=== PATIENT | male | born 1990 | race Caucasian/White ===

== ENCOUNTER 2023-08-03 18:31 | Observation (INO) ==
[2023-08-03 18:48] VITALS: BMI 42.7
--- NOTE | 2023-08-03 19:08 | DR.ABDMALE ---
HPI <Scott Rivera - Last Filed: 08/04/23 08:48> Time seen Time Seen by Provider: 08/03/23 19:07 PCP Primary Care Physician: JANAE CASTILLO Complaint Chief Complaint Doctors Comments: 32-year-old male presents for evaluation.. Patient diagnosed with gallstones in the past. Has been having a flareup over the past week. Pain of the right upper quadrant, radiates into the right back. Has been fairly persistent. Worse with eating and movement. Nothing makes it better.. Patient was seen in another facility 2 days ago, had lab work and an ultrasound. Was told that he had gallstones with inflammation of the gallbladder. Was referred to surgery, they cannot schedule him for 2 weeks. Patient having persistent pain, very severe. Nothing makes it better. Was prescribed hydrocodone. Denies fevers or chills, has been having nausea. Only vomited once last week. Denies bowel or bladder issues. Chief Complaint:: PT TO ED C/O R SIDED FLANK PAIN SINCE TUESDAY. PT WAS SEEN IN [place] ED TUESDAY NIGHT AND STATES HE WAS TOLD HE HAD GALLSTONES AND INFLAMMED GALLBLADDER. PT WAS REFERRED TO SURGEON IN [place] BUT STATES THEY CANNOT GET HIM ON THE SCHEDULE FOR TWO MORE WEEKS. PT IS UNABLE TO GET RELIEF AND RATES PAIN 10/10. COVID-19 Coronavirus risk:travel/contact w/high risk person: No Has patient experienced Coronavirus symptoms: No Reviewed Nurses Notes Review: Yes Source History provided by:: patient Mode of arrival Mode of Arrival: Ambulatory Timing Onset of Chief Complaint: 07/31/23 PMH <Scott Morenovinod - Last Filed: 08/04/23 08:48> PMH Past Medical History: Yes Past Medical History: Hypertension Past Surgical History: Yes Surgical History: Ortho Surgery Family History History of Family Medical Conditions: No Social History Does patient currently use any type of tobacco product: No Alcohol Use: Occasionally Do you use any recreational Drugs:: No Travel Risk Coronavirus risk:travel/contact w/high risk person: No Has patient experienced Coronavirus symptoms: No Infectious screening Have you traveled outside the country in the last 6 months?: No Isolation: Standard ROS <Scott Morenovinod - Last Filed: 08/04/23 08:48> Review of Systems Constitutional: No Symptoms Reported Eyes: No Symptoms Reported ENTM: No Symptoms Reported Respiratoy: No Symptoms Reported Cardiovascular: No Symptoms Reported Gastrointestinal/Abdominal: See HPI Genitourinary: No Symptoms Reported Neurological: No Symptoms Reported Musculoskeletal: No Symptoms Reported Integumentary: No Symptoms Reported Hematologic/Lymphatic: No Symptoms Reported All Other Systems: Reviewed and Negative PE <Scott Rivera - Last Filed: 08/04/23 08:48> Vital Signs Vital Signs: Temp Pulse Resp BP Pulse Ox 08/03/23 20:07 18 08/03/23 20:06 18 08/03/23 19:37 16 08/03/23 19:36 16 08/03/23 18:32 97.7 F 77 16 147/84 98 General General Appearance: Alert and In No Apparent Distress Eyes Eye exam: PERRL and EOMI ENT ENT Exam: Normal Oropharynx and Mucous Membranes Moist Neck Neck Exam: Normal Inspection Respiratory Respiratory Exam: Normal Lung Sounds Bilat; negative Accessory Muscle Use or R espiratory Distress Cardiovascular Cardiovascular Exam: Regular Rate, Normal Rhythm and Normal Heart Sounds Abdominal Exam Abdominal Exam: Normal Bowel Sounds, Soft and Tenderness (RUQ, + Renner's) Back Back Exam: (R) CVA Tenderness Extremeties Extremities Exam: Normal Inspection Neurologic Neurological Exam: Alert, Oriented X3 and CN II-XII Intact; negative Motor Sensory Deficit Skin Skin Exam: Warm and Dry <Claudette BlasMabelBoubacar - Last Filed: 08/03/23 22:11> Vital Signs Vital Signs: Temp Pulse Resp BP Pulse Ox 08/03/23 20:07 18 08/03/23 20:06 18 08/03/23 19:37 16 08/03/23 19:36 16 08/03/23 18:32 97.7 F 77 16 147/84 98 COURSE <Scott Rivera - Last Filed: 08/04/23 08:48> Treatment Treatment: Patient with right upper quadrant abdominal pain over the past several days. Has a history of gallstones in the past. Told 2 days ago at [facility] ER that it was inflamed. Workup initiated. Patient given IV fluids, IV Zofran/Toradol/Dilaudid. Patient will be signed over to my relief physician, Dr Hamlin. <Claudette Lynn - Last Filed: 08/03/23 22:11> Treatment Treatment: Patient with right upper quadrant abdominal pain over the past several days. Has a history of gallstones in the past. Told 2 days ago at another ER that it was inflamed. Workup initiated. Patient given IV fluids, IV Zofran/Toradol/Dilaudid. Patient will be signed over to my relief physician, Dr aHmlin. 21:[address] Jones. Dr Jones will admit patient to his service and will consult Dr Palma. Patient states that he is not having pain at this time. ROR <Scott Rivera - Last Filed: 08/04/23 08:48> Labs Reviewed 08/04/23 05:13 08/04/23 05:13 Laboratory: WBC 9.2 X10^3/uL (3.6-10.0) 08/03/23 19:22 RBC 4.86 X10^6/uL (4.7-6.0) 08/03/23 19:22 Hgb 14.4 g/dL (13.5-18.0) 08/03/23 19:22 Hct 42.2 % (42.0-54.0) 08/03/23 19:22 MCV 86.8 fL (80.0-100.0) 08/03/23 19:22 MCH 29.6 pg (27.0-34.0) 08/03/23 19:22 MCHC 34.1 g/dL (33.0-35.0) 08/03/23 19:22 RDW 13.3 % (11.6-16.5) 08/03/23 19:22 Plt Count 187 X10^3/uL (150.0-450.0) 08/03/23 19:22 MPV 8.3 fL (7.4-11.0) 08/03/23 19:22 Neut % (Auto) 69.9 % (42.0-75.0) 08/03/23 19:22 Lymph % (Auto) 14.9 % (21.0-51.0) L 08/03/23 19:22 Band[place] % (Auto) 9.9 % (0.0-13.0) 08/03/23 19:22 Eos % (Auto) 4.3 % (0.9-2.9) H 08/03/23 19:22 Baso % (Auto) 1.0 % (0.2-1.0) 08/03/23 19:22 Neut # (Auto) 6.4 x10^3/uL (2.2-4.8) H 08/03/23 19:22 Lymph # (Auto) 1.4 X10^3/uL (1.3-2.9) 08/03/23 19:22 Bandera # (Auto) 0.9 x10^3/uL (0.3-0.8) H 08/03/23 19:22 Eos # (Auto) 0.4 x10^3/uL (0.0-0.2) H 08/03/23 19:22 Baso # (Auto) 0.1 X10^3/uL (0.0-0.1) 08/03/23 19:22 Absolute Nucleated RBC 0.0 /100WBC 08/03/23 19:22 Sodium 145 mmol/L (136-145) 08/03/23 19:22 Corrected Sodium TNP 08/03/23 19:22 Potassium 3.8 mmol/L (3.5-5.1) 08/03/23 19:22 Chloride 106 mmol/L (98-107) 08/03/23 19:22 Carbon Dioxide 29.9 mmol/L (21-32) 08/03/23 19:22 BUN 10 mg/dL (7-18) 08/03/23 19:22 Creatinine 1.18 mg/dL (0.70-1.30) 08/03/23 19:22 Est GFR (MDRD) Af Amer > 60 (>60) 08/03/23 19:22 Est GFR (MDRD) Non-Af > 60 (>60) 08/03/23 19:22 Glucose 89 mg/dL (65-99) 08/03/23 19:22 Calcium 8.8 mg/dL (8.5-10.1) 08/03/23 19:22 Corrected Calcium TNP 08/03/23 19:22 Total Bilirubin 0.70 mg/dL (0.2-1.0) 08/03/23 19:22 AST 19 Units/L (15-37) 08/03/23 19:22 ALT 42 Units/L (12-78) 08/03/23 19:22 Alkaline Phosphatase 80 Units/L (46-116) 08/03/23 19:22 Total Protein 7.3 g/dL (6.4-8.2) 08/03/23 19:22 Albumin 3.6 g/dL (3.4-5.0) 08/03/23 19:22 Globulin 3.7 g/dL (2.5-4.5) 08/03/23 19:22 Albumin/Globulin Ratio 1.0 Ratio (1.1-2.1) L 08/03/23 19:22 Lipase 35 Units/L (16-77) 08/03/23 19:22 Specimen Type Clean catch urine 08/03/23 19:40 Urine Color Yellow (YELLOW) 08/03/23 19:40 Urine Appearance Clear (CLEAR) 08/03/23 19:40 Urine pH 6.0 (5.0 - 8.0) 08/03/23 19:40 Ur Specific [place] 1.020 (1.000-1.030) 08/03/23 19:40 Urine Protein 1+ (NEGATIVE) 08/03/23 19:40 Urine Glucose (UA) Negative (NEGATIVE) 08/03/23 19:40 Urine Ketones Negative (NEGATIVE) 08/03/23 19:40 Urine Blood 1+ (NEGATIVE) 08/03/23 19:40 Urine Nitrite Negative (NEGATIVE) 08/03/23 19:40 Urine Bilirubin Negative (NEGATIVE) 08/03/23 19:40 Urine Urobilinogen Normal (NORMAL) 08/03/23 19:40 Ur Leukocyte Esterase Negative (NEGATIVE) 08/03/23 19:40 Urine RBC 0-2 /HPF (0-3) 08/03/23 19:40 Urine WBC 0-2 /HPF (0-5) 08/03/23 19:40 Ur Squamous Epith Cells Few /HPF (NEGATIVE) 08/03/23 19:40 Urine Bacteria Trace /HPF (NEGATIVE) 08/03/23 19:40 Ur Culture Indicated? No/not indicated 08/03/23 19:40 <Claudette Lynn - Last Filed: 08/03/23 22:11> Labs Reviewed Laboratory Results Reviewed?: Yes Laboratory: WBC 9.2 X10^3/uL (3.6-10.0) 08/03/23 19:22 RBC 4.86 X10^6/uL (4.7-6.0) 08/03/23 19:22 Hgb 14.4 g/dL (13.5-18.0) 08/03/23 19:22 Hct 42.2 % (42.0-54.0) 08/03/23 19:22 MCV 86.8 fL (80.0-100.0) 08/03/23 19:22 MCH 29.6 pg (27.0-34.0) 08/03/23 19:22 MCHC 34.1 g/dL (33.0-35.0) 08/03/23 19:22 RDW 13.3 % (11.6-16.5) 08/03/23 19:22 Plt Count 187 X10^3/uL (150.0-450.0) 08/03/23 19:22 MPV 8.3 fL (7.4-11.0) 08/03/23 19:22 Neut % (Auto) 69.9 % (42.0-75.0) 08/03/23 19:22 Lymph % (Auto) 14.9 % (21.0-51.0) L 08/03/23 19:22 Bandera % (Auto) 9.9 % (0.0-13.0) 08/03/23 19:22 Eos % (Auto) 4.3 % (0.9-2.9) H 08/03/23 19:22 Baso % (Auto) 1.0 % (0.2-1.0) 08/03/23 19:22 Neut # (Auto) 6.4 x10^3/uL (2.2-4.8) H 08/03/23 19:22 Lymph # (Auto) 1.4 X10^3/uL (1.3-2.9) 08/03/23 19:22 Bandera # (Auto) 0.9 x10^3/uL (0.3-0.8) H 08/03/23 19:22 Eos # (Auto) 0.4 x10^3/uL (0.0-0.2) H 08/03/23 19:22 Baso # (Auto) 0.1 X10^3/uL (0.0-0.1) 08/03/23 19:22 Absolute Nucleated RBC 0.0 /100WBC 08/03/23 19:22 Sodium 145 mmol/L (136-145) 08/03/23 19:22 Corrected Sodium TNP 08/03/23 19:22 Potassium 3.8 mmol/L (3.5-5.1) 08/03/23 19:22 Chloride 106 mmol/L (98-107) 08/03/23 19:22 Carbon Dioxide 29.9 mmol/L (21-32) 08/03/23 19:22 BUN 10 mg/dL (7-18) 08/03/23 19:22 Creatinine 1.18 mg/dL (0.70-1.30) 08/03/23 19:22 Est GFR (MDRD) Af Amer > 60 (>60) 08/03/23 19:22 Est GFR (MDRD) Non-Af > 60 (>60) 08/03/23 19:22 Glucose 89 mg/dL (65-99) 08/03/23 19:22 Calcium 8.8 mg/dL (8.5-10.1) 08/03/23 19:22 Corrected Calcium TNP 08/03/23 19:22 Total Bilirubin 0.70 mg/dL (0.2-1.0) 08/03/23 19:22 AST 19 Units/L (15-37) 08/03/23 19:22 ALT 42 Units/L (12-78) 08/03/23 19:22 Alkaline Phosphatase 80 Units/L (46-116) 08/03/23 19:22 Total Protein 7.3 g/dL (6.4-8.2) 08/03/23 19:22 Albumin 3.6 g/dL (3.4-5.0) 08/03/23 19:22 Globulin 3.7 g/dL (2.5-4.5) 08/03/23 19:22 Albumin/Globulin Ratio 1.0 Ratio (1.1-2.1) L 08/03/23 19:22 Lipase 35 Units/L (16-77) 08/03/23 19:22 Specimen Type Clean catch urine 08/03/23 19:40 Urine Color Yellow (YELLOW) 08/03/23 19:40 Urine Appearance Clear (CLEAR) 08/03/23 19:40 Urine pH 6.0 (5.0 - 8.0) 08/03/23 19:40 Ur Specific [place] 1.020 (1.000-1.030) 08/03/23 19:40 Urine Protein 1+ (NEGATIVE) 08/03/23 19:40 Urine Glucose (UA) Negative (NEGATIVE) 08/03/23 19:40 Urine Ketones Negative (NEGATIVE) 08/03/23 19:40 Urine Blood 1+ (NEGATIVE) 08/03/23 19:40 Urine Nitrite Negative (NEGATIVE) 08/03/23 19:40 Urine Bilirubin Negative (NEGATIVE) 08/03/23 19:40 Urine Urobilinogen Normal (NORMAL) 08/03/23 19:40 Ur Leukocyte Esterase Negative (NEGATIVE) 08/03/23 19:40 Urine RBC 0-2 /HPF (0-3) 08/03/23 19:40 Urine WBC 0-2 /HPF (0-5) 08/03/23 19:40 Ur Squamous Epith Cells Few /HPF (NEGATIVE) 08/03/23 19:40 Urine Bacteria Trace /HPF (NEGATIVE) 08/03/23 19:40 Ur Culture Indicated? No/not indicated 08/03/23 19:40 XRAY X-ray Results: EXAM: ABDCMEN/PELVIS WITH CON HISTORY: RUQ PAIN. H/O GALLSTONES; COMPARISON: None. TECHNIQUE: Following the intravenous administration of iodinated contrast, spiral CT imaging was performed through the abdomen and pelvis and axial, coronal, and sagittal CT images were generated. FINDINGS: The lung bases are grossly clear. The heart size is normal. Liver is normal. The gallbladder wall is thickened suggesting cholecystitis. There is no stone seen in the gallbladder or the common bile duct. The pancreas, spleen, adrenal glands are normal. The kidneys are normal in size and enhancement. There is no mass, stone, or hydronephrosis. The stomach and small bowel and appendix are normal. Large bowel is. The bladder wall is markedly thickened. The prostate is normal in size. IMPRESSION: 1. Gallbladder wall thickening suggesting cholecystitis. 2. Severe urinary bladder wall thickening suggesting chronic cystitis THIS IS AN ELECTRONICALLY VERIFIED FINAL REPORT 08/03/2023 8:27 PM - Electronically signed by Marko Peacock MD Opioid <Scott Miguel - Last Filed: 08/04/23 08:48> Opioid Risk Tool Age ([place] if [id number]): No History of Preadolescent Sexual Abuse: No Total: 0 Total Score Risk Category: Low Risk Copyright: [employer] predicting aberrant behaviors <Claudette DavidggJamey - Last Filed: 08/03/23 22:11> Opioid Risk Tool Total: 0 Total Score Risk Category: Low Risk Discharge Plan Diagnosis Discharge Problem: Acute cholecystitis Discharge Plan Patient Disposition: ADMITTED INPATIENT Condition: Stable
[2023-08-03] MEDS ORDERED: ZOFRAN INJ 4 MG VIAL ONE (19:18)
[2023-08-03] MEDS ORDERED: DILAUDID INJ ONE (19:18)
[2023-08-03] MEDS ORDERED: TORADOL 30 MG VIAL ONE (19:18)
[2023-08-03] MEDS ORDERED: NS 1,000 ML IV 1,000 ML ONE (19:18)
[2023-08-03 19:33] LABS: BASOPHILS # (AUTO) 0.1 X10^3/uL (0.0-0.1); EOSINOPHILS # (AUTO) 0.4 x10^3/uL (0.0-0.2); EOSINOPHILS % (AUTO) 4.3 % (0.9-2.9); HEMATOCRIT 42.2 % (42.0-54.0); HEMOGLOBIN 14.4 g/dL (13.5-18.0); LYMPHOCYTES # (AUTO) 1.4 X10^3/uL (1.3-2.9); LYMPHOCYTES % (AUTO) 14.9 % (21.0-51.0); MEAN CORPUSCULAR HEMOGLOBIN 29.6 pg (27.0-34.0); MEAN CORPUSCULAR HGB CONC 34.1 g/dL (33.0-35.0); MEAN CORPUSCULAR VOLUME 86.8 fL (80.0-100.0); MEAN PLATELET VOLUME 8.3 fL (7.4-11.0); MONOCYTES # (AUTO) 0.9 x10^3/uL (0.3-0.8); MONOCYTES % (AUTO) 9.9 % (0.0-13.0); NEUTROPHILS # (AUTO) 6.4 x10^3/uL (2.2-4.8); NEUTROPHILS % (AUTO) 69.9 % (42.0-75.0); PLATELET COUNT 187 X10^3/uL (150.0-450.0); RED BLOOD COUNT 4.86 X10^6/uL (4.7-6.0); RED CELL DISTRIBUTION WIDTH 13.3 % (11.6-16.5); WHITE BLOOD COUNT 9.2 X10^3/uL (3.6-10.0)
[2023-08-03] MEDS: DILAUDID INJ IVP ONE (19:36)
[2023-08-03] MEDS: TORADOL 30 MG VIAL IVP ONE (19:37)
[2023-08-03] MEDS: NS 1,000 ML IV 1,000 ML IV ONE (19:37)
[2023-08-03] MEDS: ZOFRAN INJ 4 MG VIAL IVP ONE (19:38)
[2023-08-03 19:42] LABS: ALANINE AMINOTRANSFERASE 42 Units/L (12-78); ALBUMIN 3.6 g/dL (3.4-5.0); ALKALINE PHOSPHATASE 80 Units/L (46-116); ASPARTATE AMINO TRANSFERASE 19 Units/L (15-37); BLOOD UREA NITROGEN 10 mg/dL (7-18); CALCIUM 8.8 mg/dL (8.5-10.1); CARBON DIOXIDE 29.9 mmol/L (21-32); CHLORIDE 106 mmol/L (98-107); CREATININE 1.18 mg/dL (0.70-1.30); GLUCOSE 89 mg/dL (65-99); LIPASE 35 Units/L (16-77); POTASSIUM 3.8 mmol/L (3.5-5.1); SODIUM 145 mmol/L (136-145); TOTAL PROTEIN 7.3 g/dL (6.4-8.2); eGFR NON BLACK RACES > 60 (>60)
[2023-08-03 20:04] LABS: BILIRUBIN,URINE NEGATIVE (NEGATIVE); BLOOD/HEMOGLOBIN,URINE 1+ (NEGATIVE); GLUCOSE, URINE NEGATIVE (NEGATIVE); KETONES,URINE NEGATIVE (NEGATIVE); LEUKOCYTE ESTERASE ,URINE NEGATIVE (NEGATIVE); NITRITES,URINE NEGATIVE (NEGATIVE); PROTEIN,URINE 1+ (NEGATIVE); UROBILINOGEN,URINE NORMAL (NORMAL)
[2023-08-03] MEDS: NS 100 ML IV 100 ML ONE (20:10)
[2023-08-03] MEDS: OMNIPAQUE 350 mg/mL 100 mL BTL 100 ML ONE (20:11)
[2023-08-03 20:19] LABS: APPEARANCE,URINE CLEAR (CLEAR); BACTERIA,URINE TRACE /HPF (NEGATIVE); COLOR,URINE YELLOW (YELLOW); RBC,URINE 0-2 /HPF (0-3); SQUAMOUS EPITHELIAL CELL,UR FEW /HPF (NEGATIVE)
--- NOTE | 2023-08-03 20:30 | CT ---
EXAM:ABDCMEN/PELVIS WITH CONHISTORY:RUQ PAIN. H/O GALLSTONES;COMPARISON:None.TECHNIQUE:Fol lowing the intravenous administration of iodinated contrast, spiral CT imaging was performed through the abdomen and pelvis and axial, coronal, and sagittal CT images were generated.FINDINGS:The lung bases are grossly clear. The heart size is normal. Liver is normal. The gallbladder wall is thickened suggesting cholecystitis. There is no stone seen in the gallbladder or the common bile duct. The pancreas, spleen, adrenal glands are normal. The kidneys are normal in size and enhancement. There is no mass, stone, or hydronephrosis. The stomach and small bowel and appendix are normal. Large bowel is. The bladder wall is markedly thickened. The prostate is normal in size.IMPRESSION:1. Gallbladder wall thickening suggesting cholecystitis.2. Severe urinary bladder wall thickening suggesting chronic cystitisTHIS IS AN ELECTRONICALLY VERIFIED FINAL REPORT08/03/2023 8:27 PM - Electronically signed by Marko Peacock MD
[2023-08-03] MEDS ORDERED: LR 1,000 ML IV 1,000 ML IV ONE (22:15)
[2023-08-03] MEDS: LR 1,000 ML IV 1,000 ML IV SCH (22:20)
[2023-08-03] MEDS ORDERED: ZOFRAN INJ 4 MG VIAL IVP PRN (22:31)
[2023-08-04 05:55] LABS: BASOPHILS % (AUTO) 0.3 % (0.2-1.0); EOSINOPHILS # (AUTO) 0.3 x10^3/uL (0.0-0.2); EOSINOPHILS % (AUTO) 5.1 % (0.9-2.9); HEMATOCRIT 39.7 % (42.0-54.0); HEMOGLOBIN 13.6 g/dL (13.5-18.0); LYMPHOCYTES # (AUTO) 0.8 X10^3/uL (1.3-2.9); LYMPHOCYTES % (AUTO) 12.1 % (21.0-51.0); MEAN CORPUSCULAR HEMOGLOBIN 29.6 pg (27.0-34.0); MEAN CORPUSCULAR HGB CONC 34.2 g/dL (33.0-35.0); MEAN CORPUSCULAR VOLUME 86.4 fL (80.0-100.0); MEAN PLATELET VOLUME 8.9 fL (7.4-11.0); MONOCYTES # (AUTO) 0.7 x10^3/uL (0.3-0.8); MONOCYTES % (AUTO) 11.2 % (0.0-13.0); NEUTROPHILS # (AUTO) 4.6 x10^3/uL (2.2-4.8); NEUTROPHILS % (AUTO) 71.3 % (42.0-75.0); PLATELET COUNT 190 X10^3/uL (150.0-450.0); RED BLOOD COUNT 4.59 X10^6/uL (4.7-6.0); RED CELL DISTRIBUTION WIDTH 12.9 % (11.6-16.5); WHITE BLOOD COUNT 6.4 X10^3/uL (3.6-10.0)
[2023-08-04 06:07] LABS: ALANINE AMINOTRANSFERASE 37 Units/L (12-78); ALBUMIN 3.3 g/dL (3.4-5.0); ALKALINE PHOSPHATASE 74 Units/L (46-116); ASPARTATE AMINO TRANSFERASE 17 Units/L (15-37); BLOOD UREA NITROGEN 11 mg/dL (7-18); CALCIUM 8.4 mg/dL (8.5-10.1); CARBON DIOXIDE 29.1 mmol/L (21-32); CHLORIDE 106 mmol/L (98-107); CREATININE 1.11 mg/dL (0.70-1.30); GLUCOSE 82 mg/dL (65-99); POTASSIUM 3.9 mmol/L (3.5-5.1); SODIUM 144 mmol/L (136-145); TOTAL PROTEIN 6.9 g/dL (6.4-8.2); eGFR NON BLACK RACES > 60 (>60)
--- NOTE | 2023-08-04 08:00 | RAD ---
EXAM:CHEST, 1 VIEWHISTORY:pre op for cholecystectomy; surgeryCOMPARISON:No relevant prior studies were available for comparison at the time of interpretation.TECHNIQUE:CHEST, 1 VIEWFINDINGS:Chest:Lines and tubes: NoneMediastinum: Cardiac and mediastinal shadow is within normal limits for size and contour.Pulmonary vessels: No pulmonary vascular congestion.Lung antonio: No suspicious airspace opacity.Pleura: No effusion. No pneumothorax.Bones and soft tissues: No acute osseous or soft tissue abnormality.IMPRESSION:1. No acute cardiopulmonary abnormalityTHIS IS AN ELECTRONICALLY VERIFIED FINAL REPORT08/04/2023 7:57 AM - Electronically signed by Rigo Posey MD
--- NOTE | 2023-08-04 08:12 | EKG ---
Test Reason : sugery Blood Pressure : */* mmHG Vent. Rate : 58 BPM Atrial Rate : 58 BPM P-R Int : 178 ms QRS Dur : 92 ms QT Int : 384 ms P-R-T Axes : 45 -27 -3 degrees QTc Int : 376 ms Sinus bradycardia with sinus arrhythmia Nonspecific T wave abnormality Abnormal ECG No previous ECGs available Confirmed by Robert Condon MD ([id number]) on 08/04/2023 11:07:38 AM Referred By: Confirmed By: Robert Condon MD
[2023-08-04] MEDS: COZAAR PO SCH (08:30)
[2023-08-04] MEDS: PROTONIX TAB 40 MG PO SCH (08:30)
[2023-08-04] MEDS: LEVAQUIN PREMIX IV 500 MG 500 MG/100 ML BAG IV SCH (08:31)
[2023-08-04] MEDS: LR 1,000 ML IV 1,000 ML IV SCH (09:14)
[2023-08-04] MEDS: DILAUDID INJ IVP PRN (09:14)
--- NOTE | 2023-08-04 09:17 | DR.H&P ---
H&P - History & Physical for Day of: H&P Date: 08/03/23 - Chief Complaint Chief Complaint: ABDOMINAL PAIN - History of Present Illness History of Present Illness: IS A 32 YEAR OLD PATIENT OF [facility]. HE PRESENTED TO THE ER WITH COMPLAINTS OF RIGHT SIDED FLANK PAIN X 3 DAYS. HE REPORTS THAT PAIN HAS PROGRESSIVELY GOTTEN WORSE. HE REPORTS THAT PAIN RADIATES TO THE RIGHT SIDE BACK AND HAS BEEN FAIRLY PERSISTENT. PAIN IS WORSE WITH MOVEMENT. HE DENIES FEVER, CHILLS, NAUSEA, OR BOWEL OR BLADDER ISSUES. HE WAS SEEN IN THE ER IN [place] ON 08/01 AND WAS DIAGNOSED WITH GALLSTONES AND INFLAMMED GALLBALDDER. HE WAS REFERRED TO A GENERAL SURGEON. HIS MEDICAL HX INCLUDES: HYPERTENSION, GERD, VITAMIN D DEFICIENCY, TESTICULAR HYPOFUNCTION. ON ARRIVAL TO THE HOSPITAL, HIS VITALS WERE: 97.7-77-16-98%-147-84. LABS WERE OBTAINED. WBC 9.2, RBC 4.86, HGB 14.4, HCT 42.2, PLT COUNT 187, SODIUM 145, POTASSIUM 3.8, CHLORIDE 106, BUN 10, CREATININE 1.18, GLUCOSE 89, CALCIUM 8.8, TOTAL BILI 0.70, AST 19, ALT 42, ALK PHOS 80, TOTAL PROTEIN 7.3, ALBUMIN 3.6. A URINALYSIS WAS OBTAINED AND REVEALED: WBC 0-2, RBC 0-2, LEUKOCYTES NEGATIVE, BLOOD 1+. AN ABDOMEN/PELVIS CT WITH CONTRAST WAS OBTAINED AND REVEALED: THE LUNG BASES ARE GROSSLY CLEAR. THE HEART SIZE IS NORMAL. LIVER IS NORMAL. THE GALLBLADDER WALL IS THICKENED SUGGESTING CHOLECYSTITIS. THERE IS NO STONE SEEN IN THE GALLBLADDER OR THE COMMON BILE DUCT. THE PANCREAS, SPLEEN, ADRENAL GLANDS ARE NORMAL. THE KIDNEYS ARE NORMAL IN SIZE AND ENHANCEMENT. THERE IS NO MASS, STONE, OR HYDRONEPHROSIS. THE STOMACH AND SMALL BOWEL AND APPENDIX ARE NORMAL. LARGE BOWEL IS. THE BLADDER WALL IS MARKEDLY THICKENED. THE PROSTATE IS NORMAL IN SIZE. A CHEST XRAY WAS OBTAINED AND REVEALED NO ACUTE CARDIOPULMONARY ABNORMALITY. EKG REVEALED SINUS BRADYCARDIA WITH HR 58 BPM. IN THE ER, SHE WAS GIVEN DILAUDID 1MG IV X 1, TORADOL 30MG IV X 1, ZOFRAN 4MG IV X 1, AND A NORMAL SALINE BOLUS. HE WAS ADMITTED TO THE HOSPITAL OBSERVATION STATUS FOR FURTHER EVALUATION AND TREATMENT OF ACUTE CHOLECYSTITIS. , GENERAL SURGEON, WAS CONSULTED AND PLANS FOR LAPROSCOPIC CHOLECYSTECTOMY TODAY. WE ARE IN AGREEMENT WITH PLANS AND PATIENT IS STABLE FOR SURGERY. HE WAS STARTED ON LR AT 150 ML/HR, LEVAQUIN 500MG IV DAILY, DILAUDID 1MG IV Q4H PRN, ZOFRAN 4MG IV Q8H PRN. HIS HOME MEDICATIONS OF VITAMIN D, COZAAR, PROTONIX WERE RESUMED. OTHERWISE, WE PLAN TO FOLLOW-UP WITH AM LAB AND CONTINUE TO MONITOR. TIME SPENT ON CLINICAL ASSESSMENT, REVIEWING LABS AND IMAGING, DECISION MAKING, AND DOCUMENTATION GREATER THAN 75 MINUTES. - Past Medical History Past Medical History: GERD, Hypertension Additional Medical History: VITAMIN D DEFICIENCY - Past Surgical History Surgical History: Unknown - Social History Does patient currently use any type of tobacco product: No Does any household member use tobacco: No Alcohol Use: None Drug Use: None - Review of Systems Constitutional: No Symptoms Reported Eyes: No Symptoms Reported ENT: No Symptoms Reported Respiratory: No Symptoms Reported Cardiovascular: No Symptoms Reported Gastrointestinal: Abdominal Pain. denies: Nausea, Diarrhea, Constipation Genitourinary: No Symptoms Reported Musculoskeletal: No Symptoms Reported Skin: No Symptoms Reported Neurological: Weakness - Physical Exam Vital Signs: Vital Signs Temperature 98.4 F Temperature 98.4 F Pulse Rate [Left Brachial] 87 Pulse Rate [Left Brachial] 70 Respiratory Rate 18 Respiratory Rate 21 Blood Pressure [Left Arm] 187/84 Blood Pressure [Left Arm] 152/73 O2 Sat by Pulse Oximetry 96 O2 Sat by Pulse Oximetry 95 Oriented: Normal Eyes: Normal Ear: Normal Nose: Normal Throat: Normal Respiratory: Clear Throughout Cardiovascular: Normal : Normal Auscultation: Bowel Sounds: Normal Palpation: Normal Tenderness: RUQ, RLQ Skin: Normal Musculoskeletal: Normal Psychiatric: Normal Mood Description: Calm Affect: Normal Speech Pattern: Clear - Assessment/Plan (1) Acute cholecystitis Status: Acute Plan: ADMIT, SURGICAL CONSULT, LR AT 150 ML/HR, LEVAQUIN 500MG IV DAILY, DILAUDID 1MG IV Q4H PRN, ZOFRAN 4MG IV Q8H PRN. HIS HOME MEDICATIONS OF VITAMIN D, COZAAR, PROTONIX WERE RESUMED. (2) Hypertension Qualifiers: Hypertension type: primary hypertension Qualified Code(s): I10 - Essential (primary) hypertension Status: Acute Plan: RESUME HOME MDS (3) GERD (gastroesophageal reflux disease) Qualifiers: Esophagitis presence: esophagitis presence not specified Qualified Code(s): K21.9 - Gastro-esophageal reflux disease without esophagitis Status: Acute Plan: RESUME HOME MEDS (4) Vitamin D deficiency Status: Acute Plan: RESUME HOME MEDS - Allergies Allergies/Adverse Reactions: Allergies Allergy/AdvReac Type Severity Reaction Status Date / Time meperidine [From Demerol] Allergy Verified 08/03/23 21:53 - Medications Home Medications: Home Medications Medication Instructions Recorded Confirmed cholecalciferol (vitamin D3) 1,250 1,250 mcg PO QWEEK 08/03/23 08/03/23 mcg (50,000 unit) capsule losartan 100 mg tablet 100 mg PO QDAY 08/03/23 08/03/23 pantoprazole 40 mg tablet,delayed 40 mg PO QDAY 08/03/23 08/03/23 release testosterone cypionate 200 mg/mL 200 mg IM QWEEK 08/03/23 08/03/23 intramuscular oil
[2023-08-04] MEDS ORDERED: REGLAN INJ 10 MG VIAL IVP PRN (13:11)
[2023-08-04] MEDS ORDERED: ZOFRAN INJ 4 MG VIAL IVP PRN (13:11)
[2023-08-04] MEDS ORDERED: BENADRYL INJ 50 MG VIAL IVP PRN (13:11)
[2023-08-04] MEDS ORDERED: DILAUDID INJ IVP PRN (13:11)
[2023-08-04] MEDS ORDERED: BARHEMSYS INJ IVP PRN (13:11)
[2023-08-04] MEDS: NS 100 ML IV 100 ML ONE (13:28)
[2023-08-04] MEDS: LR 1,000 ML IV 1,000 ML IV ONE ×2 (13:28→14:39)
[2023-08-04] MEDS: ANCEF VIAL 1 GRAM ONE (13:28)
[2023-08-04] MEDS: QUELICIN (OR ANECTINE) ONE (13:40)
[2023-08-04] MEDS: DIPRIVAN VIAL 20 ML ONE (13:40)
[2023-08-04] MEDS: DILAUDID INJ ONE (13:40)
[2023-08-04] MEDS: MAGNESIUM SULFATE 50% INJ VIAL ONE (13:40)
[2023-08-04] MEDS: PEPCID 20 MG VIAL ONE (13:40)
[2023-08-04] MEDS: ZEMURON 100 MG VIAL ONE (13:40)
[2023-08-04] MEDS: DECADRON INJ ONE (13:40)
[2023-08-04] MEDS ORDERED: SUPRANE ONE (13:40)
[2023-08-04] MEDS: VERSED ONE (13:40)
[2023-08-04] MEDS: ROBINUL ONE (13:40)
[2023-08-04] MEDS: PRECEDEX INJ VIAL ONE (13:40)
[2023-08-04] MEDS: ZOFRAN INJ 4 MG VIAL ONE (13:40)
[2023-08-04] MEDS: BACTROBAN TOPICAL OINT ONE (13:58)
[2023-08-04] MEDS ORDERED: NS IRRIGATION* 500 ML IR ONE (14:08)
[2023-08-04] MEDS: BRIDION ONE (14:38)
[2023-08-05 01:44] VITALS: RESP 20
[2023-08-05 05:43] LABS: BASOPHILS % (AUTO) 0.1 % (0.2-1.0); EOSINOPHILS % (AUTO) 0.3 % (0.9-2.9); HEMATOCRIT 39.8 % (42.0-54.0); HEMOGLOBIN 13.4 g/dL (13.5-18.0); LYMPHOCYTES # (AUTO) 0.7 X10^3/uL (1.3-2.9); LYMPHOCYTES % (AUTO) 5.9 % (21.0-51.0); MEAN CORPUSCULAR HEMOGLOBIN 29.1 pg (27.0-34.0); MEAN CORPUSCULAR HGB CONC 33.7 g/dL (33.0-35.0); MEAN CORPUSCULAR VOLUME 86.4 fL (80.0-100.0); MEAN PLATELET VOLUME 8.5 fL (7.4-11.0); MONOCYTES # (AUTO) 1.3 x10^3/uL (0.3-0.8); MONOCYTES % (AUTO) 10.6 % (0.0-13.0); NEUTROPHILS % (AUTO) 83.1 % (42.0-75.0); PLATELET COUNT 208 X10^3/uL (150.0-450.0)
[2023-08-05 06:04] LABS: ALANINE AMINOTRANSFERASE 44 Units/L (12-78); ALBUMIN 3.2 g/dL (3.4-5.0); ALKALINE PHOSPHATASE 71 Units/L (46-116); ASPARTATE AMINO TRANSFERASE 28 Units/L (15-37); BLOOD UREA NITROGEN 7 mg/dL (7-18); CALCIUM 8.6 mg/dL (8.5-10.1); CARBON DIOXIDE 29.7 mmol/L (21-32); CHLORIDE 103 mmol/L (98-107); COR CA(FOR HYPOALB) 9.2 mg/dL (8.5-10.1); CREATININE 1.03 mg/dL (0.70-1.30); GLUCOSE 99 mg/dL (65-99); POTASSIUM 4.2 mmol/L (3.5-5.1); SODIUM 141 mmol/L (136-145); eGFR NON BLACK RACES > 60 (>60)
[2023-08-05] MEDS: DILAUDID INJ ONE (07:04)
[2023-08-05] MEDS: BARHEMSYS INJ ONE (07:04)
[2023-08-05] MEDS: NORCO 5/325 MG TAB PO PRN (08:19)
[2023-08-05 08:51] VITALS: BP 196/80; PULSE 77; TEMP 98; O2SAT 98
[2023-08-05] MEDS: NORCO 5/325 MG TAB ONE (08:52)
[2023-08-07] MEDS ORDERED: DEPO-TESTOSTERONE IM SCH (09:00)
[2023-08-07] MEDS ORDERED: VITAMIN D (1.25MG) PO SCH (09:00)
== END 2023-08-05 11:45 | disposition home or self-care (01) ==
LOC: MED/SURG 18:31 → ER 18:31 → MED/SURG 22:31
PROVIDERS: ADMIT Internal Medicine; ATTEND Internal Medicine
DX: K21.9 Gastro-esophageal reflux disease without esophagitis; K80.12 Calculus of gallbladder with acute and chronic cholecystitis without obstruction; Z68.41 Body mass index [BMI] 40.0-44.9, adult; I10 Essential (primary) hypertension; K82.8 Other specified diseases of gallbladder; R00.0 Tachycardia, unspecified; K82.1 Hydrops of gallbladder; K66.0 Peritoneal adhesions (postprocedural) (postinfection); E55.9 Vitamin D deficiency, unspecified; E66.8 Other obesity; R10.11 Right upper quadrant pain; R10.84 Generalized abdominal pain